=== PATIENT | female | born 1985 | race Caucasian/White ===

== ENCOUNTER 2018-09-10 07:51 | Emergency (ER) | payer BC ==
[~2018-09-10] VITALS: Ht 182.9 cm; Wt 77.6 kg
[2018-09-10 07:51] VITALS: BP_SYST 122
[~2018-09-10 07:51] MED LIST: PREN1TAB18
[2018-09-10] MEDS ORDERED: NACL 0.9% 1,000 ML IV ONE (08:15)
[2018-09-10] MEDS ORDERED: KETOROLAC TROMETHAMINE 30 MG VIAL IVP ONE (08:15)
[2018-09-10 08:39] LABS: BASOPHILS % (AUTO) 0.8 % (0.0-2.0); EOSINOPHILS # (AUTO) 0.1 K/uL (0.0-0.4); EOSINOPHILS % (AUTO) 1.5 % (0.0-4.0); LYMPHOCYTES # (AUTO) 1.6 K/uL (1.0-5.5); LYMPHOCYTES % (AUTO) 28.3 % (20.5-51.5); MEAN CORPUSCULAR HEMOGLOBIN 32 pg (27-31); MEAN CORPUSCULAR HGB CONC 33 % (32-36); MEAN CORPUSCULAR VOLUME 94 fL (79.0-98.0); MONOCYTES # (AUTO) 0.5 K/uL (0.0-1.0); MONOCYTES % (AUTO) 8.5 % (1.7-9.3); NEUTROPHILS # (AUTO) 3.5 K/uL (1.8-7.7); NEUTROPHILS % (AUTO) 60.9 % (40.0-70.0); PLATELET COUNT (AUTO) 208 K/uL (130-430); RED BLOOD CELL COUNT(AUTO) 4.14 MIL/uL (4.2-6.2); RED CELL DISTRIBUTION WIDTH 11.9 % (9.0-15.0); WHITE BLOOD COUNT (AUTO) 5.7 K/uL (4.8-10.8)
[2018-09-10 08:49] LABS: CALCIUM 8.4 mg/dL (8.4-11.0); CREATININE 0.74 mg/dL (0.55-1.30)
[2018-09-10 08:53] LABS: ALBUMIN 3.7 g/dL (3.4-4.8); TOTAL BILIRUBIN 0.5 mg/dL (0.0-1.0)
[2018-09-10] MEDS ORDERED: MORPHINE 4 MG/ML INJ. SYRINGE IVP ONE (09:15)
[2018-09-10 10:20] VITALS: BP_SYST 118
== END 2018-09-10 10:20 | disposition home or self-care (01) ==
LOC: SED 07:51
DX: R10.31 Right lower quadrant pain (principal); R03.0 Elevated blood-pressure reading, without diagnosis of hypertension; J45.909 Unspecified asthma, uncomplicated
CPT/HCPCS: 36415; 74176; 80053; 81025; 83690; 85025; 96374; 96375; 99284; J1885; J2270; J7030